=== PATIENT | female | born 1945 | race Caucasian/White ===

== ENCOUNTER → 2017-04-23 | Outpatient (CLI) | payer MEDICARE, BC ==
[2016-04-20 08:21] VITALS: BP 129/75
[~2017-04-23] MED LIST: ACLI400A2 IH; ALBU8.5H8 INH; ASPI81TA50 PO; ATOR20TA58 PO; CALC-98 PO; CARV6.252 PO; FURO20TA3 PO; LEVO500T59 PO; MELO15TA6 PO; METF500T4 PO; MULT1TAB6 PO; NAPR500T3 PO; OLME1TAB21 PO; OMEP20CA9 PO; TRAM50TA PO
[2017-04-23 09:19] LABS: ALBUMIN 3.7 g/dL (3.4-5.0); ALBUMIN/GLOBULIN RATIO 0.8 (1.0-1.7); CALCIUM 9.8 mg/dL (8.5-10.1); GFR 54.2; POTASSIUM 3.4 mmol/L (3.5-5.1); TOTAL BILIRUBIN 0.4 mg/dL (0.2-1.0); TOTAL PROTEIN 8.1 g/dL (6.4-8.2)
== END | disposition home or self-care (01) ==
LOC: LAB 08:30
PROVIDERS: ATTEND Nurse Practitioner
DX: I50.22 Chronic systolic (congestive) heart failure (principal)
CPT/HCPCS: 36415; 80053; 83735

== ENCOUNTER → 2017-05-08 | Outpatient (CLI) | payer MEDICARE, BC ==
[2016-04-20 08:21] VITALS: BP 129/75
[2017-05-08 09:47] LABS: CALCIUM 9.7 mg/dL (8.5-10.1); CREATININE 1.3 mg/dL (0.6-1.0); POTASSIUM 4.3 mmol/L (3.5-5.1)
== END | disposition home or self-care (01) ==
LOC: LAB 08:21
PROVIDERS: ATTEND Internal Medicine Cardiovascular Disease
DX: I50.22 Chronic systolic (congestive) heart failure (principal)
CPT/HCPCS: 36415; 80048

== ENCOUNTER → 2017-06-21 | Outpatient (CLI) | payer MEDICARE, BC ==
[2016-04-20 08:21] VITALS: BP 129/75
--- NOTE | 2017-06-21 09:05 | RAD ---
INDICATION: RIGHT HIP PAIN AND NUMBNESS X 2 WEEKS COMPARISON: 01/06/2016 IMPRESSION: 2 views of hip and right pelvis obtained without acute fracture or dislocation. Degenerative changes of the partially visualized lower lumbar spine.
--- NOTE | 2017-06-21 10:05 | RAD ---
INDICATION: RIGHT HIP PAIN AND NUMBNESS X 2 WEEKS, LUMBAR PAIN COMPARISON: None. IMPRESSION: Lumbar spine: 3 views obtained without definite acute fracture or dislocation. Degenerative changes are identified with osteophyte formation as well as facet hypertrophy. Severe calcific atherosclerosis. Stool is seen throughout the partially visualized colon.
== END | disposition home or self-care (01) ==
LOC: DXRADRC 08:42
PROVIDERS: ATTEND Nurse Practitioner Family
DX: M25.751 Osteophyte, right hip (principal); I70.8 Atherosclerosis of other arteries; M54.5 Low back pain; R20.0 Anesthesia of skin
CPT/HCPCS: 72100; 73501

== ENCOUNTER → 2017-06-21 | Outpatient (CLI) | payer MEDICARE, BC ==
[2016-04-20 08:21] VITALS: BP 129/75
[2017-06-21 10:45] LABS: BASO # 0.1 x10^3/uL (0.0-0.2); BASO % 1 % (0-3); EOS # 0.4 x10^3/uL (0.0-0.7); EOS % 4 % (0-3); HEMATOCRIT 40.5 % (36.0-47.0); HEMOGLOBIN 13.9 g/dL (12.0-15.5); LYMPH # 2.3 x10^3/uL (1.0-4.8); LYMPH % 23 % (24-48); MEAN CORPUSCULAR HEMOGLOBIN 32 pg (25-35); MEAN CORPUSCULAR HGB CONC 34 g/dL (31-37); MEAN CORPUSCULAR VOLUME 93 fL (79-100); MONO # 1.1 x10^3/uL (0.0-1.1); MONO % 11 % (0-9); NEUT # 6.2 x10^3uL (1.8-7.7); NEUT % 62 % (31-73); PLATELET COUNT 159 x10^3/uL (140-400); RED BLOOD COUNT 4.34 x10^6/uL (3.50-5.40); RED CELL DISTRIBUTION WIDTH 13.7 % (11.5-14.5)
[2017-06-21 10:53] LABS: ALBUMIN 3.8 g/dL (3.4-5.0); CALCIUM 9.7 mg/dL (8.5-10.1); CREATININE 1.2 mg/dL (0.6-1.0); GFR 43.9; POTASSIUM 4.6 mmol/L (3.5-5.1); TOTAL BILIRUBIN 0.6 mg/dL (0.2-1.0); TOTAL PROTEIN 7.8 g/dL (6.4-8.2)
[2017-06-21 13:45] LABS: FREE T4 1.03 ng/dL (0.76-1.46); THYROID STIM HORMONE (TSH) 1.202 uIU/mL (0.358-3.740)
[2017-06-22 04:09] LABS: HEMOGLOBIN A1C 5.5 % (4.8-5.6)
== END | disposition home or self-care (01) ==
LOC: LAB 10:03
PROVIDERS: ATTEND Nurse Practitioner Family
DX: I10 Essential (primary) hypertension (principal); E11.9 Type 2 diabetes mellitus without complications; E83.42 Hypomagnesemia; M54.5 Low back pain
CPT/HCPCS: 36415; 80053; 83036; 83735; 84439; 84443; 85027

== ENCOUNTER → 2017-06-25 | Outpatient (CLI) | payer MEDICARE, BC ==
[2016-04-20 08:21] VITALS: BP 129/75
[2017-06-25 08:50] LABS: CALCIUM 9.9 mg/dL (8.5-10.1); CREATININE 1.3 mg/dL (0.6-1.0); POTASSIUM 4.5 mmol/L (3.5-5.1)
== END | disposition home or self-care (01) ==
LOC: LAB 08:20
PROVIDERS: ATTEND Internal Medicine Cardiovascular Disease
DX: I50.23 Acute on chronic systolic (congestive) heart failure (principal)
CPT/HCPCS: 36415; 80048

== ENCOUNTER → 2017-08-27 | Outpatient (CLI) | payer MEDICARE, BC ==
[2016-04-20 08:21] VITALS: BP 129/75
--- NOTE | 2017-08-27 12:43 | CARD ---
APPROVED REPORT EXAM: Two-dimensional and M-mode echocardiogram with Doppler and color Doppler. Other Information Quality : Average Rhythm : Pacemaker INDICATION Cardiomyopathy 2D DIMENSIONS RVDd2.8 (2.9-3.5cm)Left Atrium(2D)2.5 (1.6-4.0cm) IVSd1.0 (0.7-1.1cm)Aortic Root(2D)3.1 (2.0-3.7cm) LVDd5.7 (3.9-5.9cm)LVOT Diameter2.0 (1.8-2.4cm) PWd1.0 (0.7-1.1cm)LVDs4.7 (2.5-4.0cm) FS (%) 18.1 %SV59.2 ml LVEF(%)37.0 (>50%) Aortic Valve AoV Peak Jose.182.8cm/sAoV VTI32.1cm AO Peak GR.13.4mmHgLVOT Peak Jose.68.1cm/s LVOT VTI 12.21cmAO Mean GR.8mmHg K[place]ON (VMAX)1.44fu5IYZ (VTI)1.24cm2 Mitral Valve MV E Oevscmie60.5cm/sMV E Peak Gr.3mmHg MV DECEL CZCR796mfRP A Tctnvpsw08.5cm/s MV E Mean Gr.1mmHgMV ACF20hp E/A Ratio0.9MV A Torndbfz72fz MVA (PHT)7.77cm2 Tricuspid Valve TR P. Msnooaup647px/sRAP ZQHXNHDP2icNb TR Peak Gr.36wuBgANZZ33uyTq LEFT VENTRICLE The left ventricle is normal size. There is normal left ventricular wall thickness. Left ventricle sy stolic function is moderately impaired. Severe hypokinesis of base to mid inferior and posterior wall s. The Ejection Fraction is 35-40%. Apical motion consistent with pacemaker activation. Tissue Dopple r imaging reveals moderate left ventricular diastolic dysfunction. There is no ventricular septal def ect visualized. RIGHT VENTRICLE The right ventricle is normal size. The right ventricular systolic function is normal. There is a pac emaker/ICD lead in the right ventricle and atrium. ATRIA The left atrium size is normal. The right atrium size is normal. The interatrial septum is intact wit h no evidence for an atrial septal defect or patent foramen ovale as noted on 2-D or Doppler imaging. AORTIC VALVE The aortic valve is mildly sclerotic. The aortic valve is trileaflet. Doppler and Color Flow revealed trace aortic regurgitation. There is no significant aortic valvular stenosis. MITRAL VALVE Mitral annular calcification is mild. There is no mitral valve stenosis. Doppler and Color Flow revea led mild mitral regurgitation. TRICUSPID VALVE The tricuspid valve is normal in structure and function. Doppler and Color Flow revealed trace tricus pid regurgitation. The PA pressure was estimated at 29 mmHg. There is no tricuspid valve stenosis. PULMONIC VALVE The pulmonic valve is not well visualized. Doppler and Color Flow revealed no pulmonic valvular regur gitation. There is no pulmonic valvular stenosis. GREAT VESSELS The aortic root is normal in size. Pulmonary veins not recorded. The IVC is normal in size and collap ses >50% with inspiration. PERICARDIAL EFFUSION There is no evidence of significant pericardial effusion. Critical Notification Critical Value: No <Conclusion> Left ventricle systolic function is moderately impaired. Severe hypokinesis of base to mid inferior and posterior reynoso. The Ejection Fraction is 35-40%. There is a pacemaker/ICD lead in the right ventricle and atrium. Mld mitral regurgitation. Trace tricuspid regurgitation. The PA pressure was estimated at 29 mmHg. There is no evidence of significant pericardial effusion.
== END | disposition home or self-care (01) ==
LOC: ECHO 10:40
PROVIDERS: ATTEND Internal Medicine Cardiovascular Disease
DX: I34.0 Nonrheumatic mitral (valve) insufficiency (principal); I42.9 Cardiomyopathy, unspecified; Z95.0 Presence of cardiac pacemaker
CPT/HCPCS: 93306

== ENCOUNTER → 2017-11-13 | Outpatient (CLI) | payer MEDICARE, BC ==
[2016-04-20 08:21] VITALS: BP 129/75
[~2017-11-13] MED LIST changes: -NAPR500T3 PO; +NAPR500T4 PO
--- NOTE | 2017-11-13 09:43 | RAD ---
Chest, 2 views, 11/13/2017: History: Chest congestion Comparison is made to a study from 11/01/2016. A left-sided transvenous pacemaker remains in place with 2 leads extending into the heart. The heart size is normal. There is calcific plaquing of the aorta. The pulmonary vascularity is within normal limits. No pulmonary infiltrate is seen. The previously seen small right pleural effusion has resolved. No significant pleural fluid is currently evident. IMPRESSION: No acute cardiopulmonary abnormality is detected.
== END | disposition home or self-care (01) ==
LOC: PMG 07:31
PROVIDERS: ATTEND Physician Assistant Medical
DX: I70.0 Atherosclerosis of aorta (principal); Z95.0 Presence of cardiac pacemaker; Z87.891 Personal history of nicotine dependence
CPT/HCPCS: 71020

== ENCOUNTER → 2018-07-11 | Outpatient (CLI) | payer MEDICARE, BC ==
[2016-04-20 08:21] VITALS: BP 129/75
[~2018-07-11] MED LIST changes: -METF500T4 PO; +METF500T5 PO; +NAPR-514 PO; -NAPR500T4 PO
[2018-07-11 11:55] LABS: CALCIUM 9.5 mg/dL (8.5-10.1); CREATININE 1.4 mg/dL (0.6-1.0); GFR 36.7; POTASSIUM 4.6 mmol/L (3.5-5.1)
== END | disposition home or self-care (01) ==
LOC: LAB 10:23
PROVIDERS: ATTEND Internal Medicine Cardiovascular Disease
DX: I13.0 Hypertensive heart and chronic kidney disease with heart failure and stage 1 through stage 4 chronic kidney disease, or unspecified chronic kidney disease (principal); E11.22 Type 2 diabetes mellitus with diabetic chronic kidney disease; I50.22 Chronic systolic (congestive) heart failure; N18.9 Chronic kidney disease, unspecified; K21.9 Gastro-esophageal reflux disease without esophagitis; E87.6 Hypokalemia; Z87.891 Personal history of nicotine dependence; Z90.722 Acquired absence of ovaries, bilateral; Z90.49 Acquired absence of other specified parts of digestive tract; Z90.710 Acquired absence of both cervix and uterus; Z85.43 Personal history of malignant neoplasm of ovary; Z85.42 Personal history of malignant neoplasm of other parts of uterus; Z82.5 Family history of asthma and other chronic lower respiratory diseases; Z80.6 Family history of leukemia; Z82.49 Family history of ischemic heart disease and other diseases of the circulatory system; Z88.0 Allergy status to penicillin; Z88.1 Allergy status to other antibiotic agents; Z88.2 Allergy status to sulfonamides; Z88.8 Allergy status to other drugs, medicaments and biological substances
CPT/HCPCS: 36415; 80048

== ENCOUNTER → 2018-07-21 | Outpatient (CLI) | payer MEDICARE, BC ==
[2016-04-20 08:21] VITALS: BP 129/75
[2018-07-21 12:02] LABS: CALCIUM 10.1 mg/dL (8.5-10.1); CREATININE 1.5 mg/dL (0.6-1.0); GFR 33.9
== END | disposition home or self-care (01) ==
LOC: LAB 11:24
PROVIDERS: ATTEND Nurse Practitioner
DX: I13.0 Hypertensive heart and chronic kidney disease with heart failure and stage 1 through stage 4 chronic kidney disease, or unspecified chronic kidney disease (principal); E11.22 Type 2 diabetes mellitus with diabetic chronic kidney disease; I50.22 Chronic systolic (congestive) heart failure; N18.9 Chronic kidney disease, unspecified; E78.5 Hyperlipidemia, unspecified; Z88.2 Allergy status to sulfonamides; Z88.0 Allergy status to penicillin; Z88.1 Allergy status to other antibiotic agents; Z88.8 Allergy status to other drugs, medicaments and biological substances; Z87.891 Personal history of nicotine dependence; Z85.43 Personal history of malignant neoplasm of ovary; Z85.42 Personal history of malignant neoplasm of other parts of uterus; Z90.49 Acquired absence of other specified parts of digestive tract; Z90.710 Acquired absence of both cervix and uterus; Z80.6 Family history of leukemia; Z82.5 Family history of asthma and other chronic lower respiratory diseases
CPT/HCPCS: 36415; 80048

== ENCOUNTER → 2018-07-22 | Outpatient (CLI) | payer MEDICARE, BC ==
[2016-04-20 08:21] VITALS: BP 129/75
--- NOTE | 2018-07-22 13:00 | RAD ---
CT lumbar spine exam History:Dorsalgia, spinal stenosis of the lumbar spine, neuralgia, bilateral extremity radiculopathy Technique: CT imaging was performed of the lumbar spine after injection for lumbar myelogram. Multiplanar reconstruction images are submitted. Exposure: One or more of the following individualized dose reduction techniques were utilized for this examination: 1. Automated exposure control 2. Adjustment of the mA and/or kV according to patient size 3. Use of iterative reconstruction technique. Contrast: None Comparison: March 28, 2016 Findings: Lumbar vertebral body stature and AP alignment are maintained. There is pirq-mw-gapdjadk degenerative disc disease at L4-5, development of vacuum disc disease at this level in the interval. There is atherosclerotic calcification of the abdominal aorta and near the origins of the renal arteries greater on the left. T12-L1: Spinal canal and neural foramina are adequate. L1-L2: There is mild facet degenerative change. Neural foramina and spinal canal are adequate. L2-L3: There is mild facet degenerative change. Spinal canal and neural foramina are adequate. L3-L4: There is mild facet hypertrophic change. Spinal canal and neural foramina are adequate. L4-L5: There is minimal posterior bulge, no significant spinal stenosis identified on this nonmyelographic exam. There is lntx-ti-mkdftsxq facet degenerative change. Disc osteophyte complex again contributes to moderate narrowing of the inferior left neural foramen with contact undersurface exiting left L4 nerve root, right neural foramen adequate. L5-S1: Spinal canal is adequate. There is minimal posterior bulge/protrusion. There is mild bilateral facet hypertrophic change. Neural foramina are adequate. Impression: 1. There is bjsg-hs-zushsgec degenerative disc disease at L4-5. 2. There is multilevel lumbar facet degenerative change. 3. Disc osteophyte complex results in moderate narrowing of the inferior left L4-L5 neural foramen with contact exiting left L4 nerve root. Electronically signed by: Lee Cotton MD (07/22/2018 12:57 PM) [id number]
== END | disposition home or self-care (01) ==
LOC: CT 09:09
PROVIDERS: ATTEND Nurse Practitioner Family
DX: M48.061 Spinal stenosis, lumbar region without neurogenic claudication (principal); M51.36 Other intervertebral disc degeneration, lumbar region; M25.78 Osteophyte, vertebrae; I70.0 Atherosclerosis of aorta; I13.0 Hypertensive heart and chronic kidney disease with heart failure and stage 1 through stage 4 chronic kidney disease, or unspecified chronic kidney disease; E11.22 Type 2 diabetes mellitus with diabetic chronic kidney disease; I50.22 Chronic systolic (congestive) heart failure; N18.9 Chronic kidney disease, unspecified; K21.9 Gastro-esophageal reflux disease without esophagitis; I25.10 Atherosclerotic heart disease of native coronary artery without angina pectoris; E87.6 Hypokalemia; E78.5 Hyperlipidemia, unspecified; Z90.710 Acquired absence of both cervix and uterus; Z90.49 Acquired absence of other specified parts of digestive tract; Z90.722 Acquired absence of ovaries, bilateral; Z87.891 Personal history of nicotine dependence; Z85.43 Personal history of malignant neoplasm of ovary; Z85.42 Personal history of malignant neoplasm of other parts of uterus; Z88.2 Allergy status to sulfonamides; Z88.0 Allergy status to penicillin; Z88.1 Allergy status to other antibiotic agents; Z88.8 Allergy status to other drugs, medicaments and biological substances; Z82.49 Family history of ischemic heart disease and other diseases of the circulatory system
CPT/HCPCS: 72132

== ENCOUNTER → 2018-08-21 | Outpatient (CLI) | payer MEDICARE, BC ==
[2016-04-20 08:21] VITALS: BP 129/75
[~2018-08-21] MED LIST changes: +METF500T16 PO; -METF500T5 PO
--- NOTE | 2018-08-21 12:35 | CARD ---
MR#: [id number] Date of Study: 08/21/2018 Ordering Physician: RINKU MELENDEZ, Referring Physician: RINKU MELENDEZ, Tech: Yolanda Sweeney APPROVED REPORT EXAM: Two-dimensional and M-mode echocardiogram with Doppler and color Doppler. Other Information Quality : AverageFairHR: 74bpm INDICATION Cardiomyopathy RISK FACTORS Hypertension Hyperlipidemia Diabetes 2D DIMENSIONS RVDd2.0 (2.9-3.5cm)Left Atrium(2D)3.2 (1.6-4.0cm) IVSd1.2 (0.7-1.1cm)Aortic Root(2D)3.3 (2.0-3.7cm) LVDd4.3 (3.9-5.9cm)LVOT Diameter2.3 (1.8-2.4cm) PWd1.5 (0.7-1.1cm)LVDs2.9 (2.5-4.0cm) FS (%) 33.0 %SV52.4 ml Aortic Valve AoV Peak Jose.210.7cm/sAoV VTI42.0cm AO Peak GR.17.8mmHgLVOT Peak Jose.96.1cm/s LVOT VTI 20.23cmAO Mean GR.9mmHg KENTON (VMAX)1.79cl3KFS (VTI)1.95cm2 Mitral Valve MV E Zjyysope46.1cm/sMV DECEL SIRR45ws MV A Fivsfwce81.8cm/sE/A Ratio0.4 Pulmonary Valve PV Peak Xelivlaq42.4cm/sPV Peak Grad.3mmHg LEFT VENTRICLE The left ventricle is normal size. There is borderline to mild concentric left ventricular hypertroph y. The left ventricular systolic function is mildly to moderately impaired. The ejection fraction is 40%. Transmitral Doppler flow pattern is Grade I-abnormal relaxation pattern. RIGHT VENTRICLE The right ventricle is normal size. There is normal right ventricular wall thickness. The right ventr icular systolic function is normal. Pacer wire noted right atrium and right ventricle. ATRIA The left atrium size is normal. The right atrium size is normal. The interatrial septum is intact wit h no evidence for an atrial septal defect or patent foramen ovale as noted on 2-D or Doppler imaging. AORTIC VALVE The aortic valve is thickened but opens well. Doppler and Color Flow revealed trace aortic regurgitat ion. There is no significant aortic valvular stenosis. MITRAL VALVE The mitral valve is normal in structure and function. There is no mitral valve stenosis. Doppler and Color-flow revealed trace mitral regurgitation. TRICUSPID VALVE The tricuspid valve is normal in structure and function. Doppler and Color Flow revealed trace tricus pid regurgitation. There is no tricuspid valve stenosis. PULMONIC VALVE The pulmonic valve is not well visualized. Doppler and Color Flow revealed no pulmonic valvular regur gitation. GREAT VESSELS The aortic root is normal in size. The IVC is normal in size and collapses >50% with inspiration. PERICARDIAL EFFUSION There is no evidence of significant pericardial effusion. Critical Notification Critical Value: No <Conclusion> The left ventricular systolic function is mildly to moderately impaired. The ejection fraction is 40%. Transmitral Doppler flow pattern is Grade I-abnormal relaxation pattern. Pacer wire noted right atrium and right ventricle. Trace aortic regurgitation. Trace mitral regurgitation. Trace tricuspid regurgitation. There is no evidence of significant pericardial effusion. Signed by : Rinku Melendez, Electronically Approved : 08/21/2018 12:34:06
== END | disposition home or self-care (01) ==
LOC: ECHO 09:26
PROVIDERS: ATTEND Internal Medicine Cardiovascular Disease
DX: I13.0 Hypertensive heart and chronic kidney disease with heart failure and stage 1 through stage 4 chronic kidney disease, or unspecified chronic kidney disease (principal); E11.22 Type 2 diabetes mellitus with diabetic chronic kidney disease; I50.22 Chronic systolic (congestive) heart failure; N18.9 Chronic kidney disease, unspecified; K21.9 Gastro-esophageal reflux disease without esophagitis; Z86.2 Personal history of diseases of the blood and blood-forming organs and certain disorders involving the immune mechanism; Z87.891 Personal history of nicotine dependence; Z85.43 Personal history of malignant neoplasm of ovary; Z85.42 Personal history of malignant neoplasm of other parts of uterus; Z90.722 Acquired absence of ovaries, bilateral; Z90.49 Acquired absence of other specified parts of digestive tract; Z90.710 Acquired absence of both cervix and uterus; Z88.0 Allergy status to penicillin; Z88.2 Allergy status to sulfonamides; Z88.1 Allergy status to other antibiotic agents; Z88.8 Allergy status to other drugs, medicaments and biological substances; Z80.6 Family history of leukemia; Z82.5 Family history of asthma and other chronic lower respiratory diseases
CPT/HCPCS: 93306

== ENCOUNTER → 2019-07-23 | Outpatient (CLI) | payer MEDICARE, BC ==
[2016-04-20 08:21] VITALS: BP 129/75
[~2019-07-23] MED LIST changes: -ACLI400A2 IH; +ACLI400A3 IH; +ALBU2.5V8 INH; -ALBU8.5H8 INH; -CARV6.252 PO; +CARV6.2541 PO; +OMEP20CA10 PO; -OMEP20CA9 PO
--- NOTE | 2019-07-23 08:49 | RAD ---
EXAM: Right knee, 2 views. HISTORY: Pain. COMPARISON: None. FINDINGS: 2 views of the right knee are obtained. There is no fracture, dislocation or subluxation. There is no significant joint effusion. IMPRESSION: No acute osseous finding. Electronically signed by: Sonia Ruano MD (07/23/2019 8:46 AM) [id number]
--- NOTE | 2019-07-23 08:49 | RAD ---
EXAM: Right hip, 2 views. HISTORY: Pain. COMPARISON: None. FINDINGS: 2 views of the right hip are obtained. There is no fracture, dislocation or subluxation. There is a suspected incidental bone island within the right greater trochanter. IMPRESSION: No acute osseous finding. Electronically signed by: Sonia Ruano MD (07/23/2019 8:46 AM) [id number]
== END | disposition home or self-care (01) ==
LOC: PMG 07:45
PROVIDERS: ATTEND Physician Assistant
DX: M25.561 Pain in right knee (principal); M25.551 Pain in right hip
CPT/HCPCS: 73502; 73560

== ENCOUNTER → 2019-09-01 | Outpatient (CLI) | payer MEDICARE, BC ==
[2016-04-20 08:21] VITALS: BP 129/75
--- NOTE | 2019-09-01 09:52 | CARD ---
MR#: [id number] Date of Study: 09/01/2019 Ordering Physician: RINKU MELENDEZ, Referring Physician: RINKU MELENDEZ Tech: Lauryn Thomas RDCS APPROVED REPORT EXAM: Two-dimensional and M-mode echocardiogram with Doppler and color Doppler. Other Information Quality : AverageHR: 68bpm Rhythm : NSR INDICATION Congestive Heart Failure 2D DIMENSIONS RVDd2.9 (2.9-3.5cm)Left Atrium(2D)3.9 (1.6-4.0cm) IVSd1.3 (0.7-1.1cm)Aortic Root(2D)3.1 (2.0-3.7cm) LVDd4.9 (3.9-5.9cm)LVOT Diameter2.0 (1.8-2.4cm) PWd1.5 (0.7-1.1cm)LVDs4.2 (2.5-4.0cm) FS (%) 14.4 %SV34.0 ml LVEF(%)30.6 (>50%) M-Mode DIMENSIONS Left Atrium(MM)3.83 (2.5-4.0cm)Aortic Root3.32 (2.2-3.7cm) Aortic Valve AoV Peak Jose.181.0cm/sAoV VTI32.2cm AO Peak GR.13.1mmHgLVOT Peak Jose.68.4cm/s LVOT VTI 13.27cmAO Mean GR.9mmHg K[place]ON (VMAX)1.05qi6IKC (VTI)1.30cm2 Mitral Valve MV E Yhuuiiwf24.5cm/sMV DECEL KDYP718rs MV A Zdswssfo23.9cm/sE/A Ratio0.4 Pulmonary Valve PV Peak Zzapcrpx21.6cm/sPV Peak Grad.3mmHg Tricuspid Valve TR P. Pmnenmzr785rg/sRAP NNQLPIHF8nyGu TR Peak Gr.82fzWtWTVD85yjDn LEFT VENTRICLE The left ventricle is normal size. There is mild concentric left ventricular hypertrophy. The left ve ntricular systolic function is moderately impaired. The Ejection Fraction is 30%. There is global hyp okinesis of the left ventricle. Transmitral Doppler flow pattern is Grade I-abnormal relaxation patte rn. RIGHT VENTRICLE The right ventricle is normal size. There is normal right ventricular wall thickness. The right ventr icular systolic function is normal. Pacer lead noted in RV/RA. ATRIA The left atrium size is normal. The right atrium size is normal. The interatrial septum is intact wit h no evidence for an atrial septal defect or patent foramen ovale as noted on 2-D or Doppler imaging. AORTIC VALVE The aortic valve is normal in structure and function. The aortic valve is probably trileaflet. Dopple r and Color Flow revealed trace aortic regurgitation. There is borderline aortic valvular stenosis. MITRAL VALVE The mitral valve is thickened but opens well. There is no evidence of mitral valve prolapse. There is no mitral valve stenosis. Doppler and Color-flow revealed trace mitral regurgitation. TRICUSPID VALVE The tricuspid valve is normal in structure and function. Doppler and Color Flow revealed trace tricus pid regurgitation. The PA pressure was estimated at 25 mmHg. There is no tricuspid valve prolapse or vegetation. There is no tricuspid valve stenosis. PULMONIC VALVE The pulmonic valve is not well visualized. GREAT VESSELS The aortic root is normal in size. The ascending aorta is normal in size. The IVC is normal in size a nd collapses >50% with inspiration. PERICARDIAL EFFUSION There is no evidence of significant pericardial effusion. Critical Notification Critical Value: No <Conclusion> The left ventricular systolic function is moderately impaired. The Ejection Fraction is 30%. Pacer lead noted in RV/RA. Trace mitral regurgitation. Trace tricuspid regurgitation. The PA pressure was estimated at 25 mmHg. There is no evidence of significant pericardial effusion. Signed by : Rinku Melendez, Electronically Approved : 09/01/2019 09:51:30
== END | disposition home or self-care (01) ==
LOC: ECHO 08:47
PROVIDERS: ATTEND Internal Medicine Cardiovascular Disease
DX: I50.22 Chronic systolic (congestive) heart failure (principal)
CPT/HCPCS: 93306

== ENCOUNTER → 2019-10-27 | Outpatient (CLI) | payer MEDICARE, BC ==
[2016-04-20 08:21] VITALS: BP 129/75
--- NOTE | 2019-10-27 13:47 | RAD ---
4 views lumbar spine compared to CT of the lumbar spine dated July 22, 2018 for low back pain, left leg shorter than the right, feels twisted. FINDINGS: There is no fracture or acute osseous abnormality identified. Degenerative disc space narrowing and vacuum phenomenon is seen at L4-5, and there is some facet arthrosis at L4-5 and L5-S1. Extensive aortic atherosclerosis is present. Cholecystostomy clips are seen. IMPRESSION: 1. Degenerative disc disease and facet arthrosis at L4-5 and L5-S1. 2. No acute osseous or alignment abnormality of the lumbar spine. 3. Extensive aortic atherosclerosis. Electronically signed by: Roque Jacobs MD (10/27/2019 1:44 PM) [id number]
== END | disposition home or self-care (01) ==
LOC: DXRAD 07:50
PROVIDERS: ATTEND Physician Assistant Medical
DX: M51.16 Intervertebral disc disorders with radiculopathy, lumbar region (principal); M53.3 Sacrococcygeal disorders, not elsewhere classified; M48.061 Spinal stenosis, lumbar region without neurogenic claudication; M47.26 Other spondylosis with radiculopathy, lumbar region; M47.818 Spondylosis without myelopathy or radiculopathy, sacral and sacrococcygeal region; I70.0 Atherosclerosis of aorta; Z90.49 Acquired absence of other specified parts of digestive tract
CPT/HCPCS: 72110

== ENCOUNTER → 2019-11-28 | Outpatient (CLI) | payer MEDICARE, BC ==
[2016-04-20 08:21] VITALS: BP 129/75
[~2019-11-28] MED LIST changes: +OMEP-229 PO; -OMEP20CA10 PO
--- NOTE | 2019-11-28 12:46 | RAD ---
Chest, PA and Lateral: Technique: PA and lateral views of the chest were obtained. History: Cough. Comparison: 11/13/2017. Findings: Mild cardiomegaly.. Left-sided cardiac pacer AICD is identified.. The pleural margins are clear. Mild degenerative changes thoracic spine. Impression: No acute chest process is seen. Electronically signed by: Dontae Collins MD (11/28/2019 12:43 PM) [facility]
== END | disposition home or self-care (01) ==
LOC: PMG 11:01
PROVIDERS: ATTEND Physician Assistant
DX: I51.7 Cardiomegaly (principal); M47.814 Spondylosis without myelopathy or radiculopathy, thoracic region
CPT/HCPCS: 71046

== ENCOUNTER → 2020-07-26 | Outpatient (CLI) | payer MEDICARE, BC ==
[2016-04-20 08:21] VITALS: BP 129/75
[~2020-07-26] MED LIST changes: -OMEP-229 PO; +OMEP20CA16 PO
--- NOTE | 2020-07-26 14:47 | RAD ---
CT LUMBAR SPINE WO CONTRAST Indication: Right lumbar radiculopathy Technique: Noncontrast CT imaging was performed of the lumbar spine, multiplanar reconstruction images submitted. One or more of the following individualized dose reduction techniques were utilized for this examination: 1. Automated exposure control 2. Adjustment of the mA and/or kV according to patient size 3. Use of iterative reconstruction technique. Comparison: July 22, 2018 exam Findings: Lumbar vertebral body stature is maintained. There has been progression of advanced L4-5 degenerative disc disease with vacuum phenomenon, mild L5-S1 degenerative disc disease and vacuum phenomenon also somewhat greater. There is now negligible anterior spondylolisthesis at L4-5. There is mild dextroscoliosis centered at L4-5, also very minimal right lateral subluxation L4 relative to L5. There is scattered plaque of the abdominal aorta and branches. There is sigmoid diverticulosis. There is a small hyperdense lesion of the visualized posterior left kidney near the midpole about 0.6 cm otherwise difficult to further accurately characterize T12-L1: There is mild facet degenerative change. Spinal canal and neural foramina are adequate. L1-L2: There is mild bilateral facet degenerative change. Neural foramina and spinal canal are overall adequate. L2-3: There is nfkb-ym-ebbtdeeu facet degenerative change. Neural foramina and spinal canal are overall adequate. L3-L4: There is jdyb-sn-qzcnxpth facet degenerative change. Spinal canal and neural foramina are overall adequate. L4-5: There is moderate facet degenerative change. There is disc osteophyte complex and likely minimal bulge. There is moderate to severe narrowing of the left neural foramen in part from disc osteophyte complex contacting the undersurface exiting left L4 nerve root in the neural foramen. There is likely at least mild narrowing of the far left lateral recess. L5-S1: There is minimal protrusion. Spinal canal is not significantly narrowed. There is xypz-bo-vqwevvyl facet degenerative change. Left neural foramen is adequate. There is likely mgdw-aj-anhftgsz narrowing greater distally of the right neural foramen in part from disc osteophyte complex with likely degree of contact exiting right L5 nerve root. IMPRESSION: 1. Comparing with 2018 exam, there has been progression of advanced L4-5 degenerative disc disease, minimally at L5-S1. There is mild spondylosis at these levels. No significant lumbar spinal stenosis is identified on this nonmyelographic exam, although likely at least mild narrowing of the far left lateral recess at L4-5. There is neural foramina compromise as described greatest on the left at L4-5 and to lesser degree on the right at L5-S1. 2. There is a small hyperdense lesion of the mid left kidney otherwise difficult to further accurately characterize, may be a complex or hemorrhagic cyst although difficult to exclude small hyperdense solid lesion on this exam. Electronically signed by: Lee Cotton MD (07/26/2020 2:45 PM) [facility]
== END | disposition home or self-care (01) ==
LOC: CT 13:02
PROVIDERS: ATTEND Physician Assistant Medical
DX: S33.140A Subluxation of L4/L5 lumbar vertebra, initial encounter (principal); M47.27 Other spondylosis with radiculopathy, lumbosacral region; M25.78 Osteophyte, vertebrae; M48.07 Spinal stenosis, lumbosacral region; K57.30 Diverticulosis of large intestine without perforation or abscess without bleeding; X58.XXXA Exposure to other specified factors, initial encounter; Y93.89 Activity, other specified; Y92.89 Other specified places as the place of occurrence of the external cause; Y99.8 Other external cause status
CPT/HCPCS: 72131

== ENCOUNTER → 2020-09-01 | Outpatient (CLI) | payer MEDICARE, BC ==
[2016-04-20 08:21] VITALS: BP 129/75
--- NOTE | 2020-09-01 13:36 | RAD ---
EXAM: DUAL ENERGY X-RAY ABSORPTIOMETRY (DEXA). HISTORY: Postmenopausal screening. FINDINGS: The lowest measured T-score is -2.2 in the left femoral neck, based on a bone mineral density of 0.670 g/cm^2. Refer to the worksheets for full detail. No comparison examinations are available. IMPRESSION: Low bone mass. Bone mineral density yields a T-score between -1.0 and -2.5. Fracture risk is increased. FRAX was not calculated. METHODOLOGY: Dual energy x-ray absorptiometry was performed to measure bone mineral density. The following analysis is based on the 2019 Official Positions of the International Society for Clinical Densitometry: Measurements of the hips and the average of L1-L4 are preferred. When the spine and/or hip cannot be feasibly measured or interpreted, or in the setting of hyperparathyroidism, distal radial bone mineral density may be measured. The lumbar spine T-score is based on the average bone mineral density of L1-L4. In the setting of artifact or anatomic abnormality, some lumbar levels may be excluded, and the remaining levels used for calculation. A single lumbar level is not used for diagnosis, and if only a single level is available for assessment, another anatomic site will be used to assign a diagnosis. The hip T-score is based on the bone mineral density measurement of the femoral neck or total proximal femur of either side, whichever is lowest. Bilateral mean values are not used for diagnosis. The forearm T-score is derived from 33% of the distal radius of the nondominant forearm. For postmenopausal and perimenopausal women, and men age 50 or older, of all ethnic groups, T-scores are calculated through comparison of the current measurement with the NHANES III database standard for females aged 20-29 years. The lowest T-score of the evaluated anatomic sites is used to assign a diagnosis based on the World Health Organization densitometric classification. In premenopausal females and males younger than age 50, a Z-score is calculated based on population specific reference data for patient sex and self-reported ethnicity. Electronically signed by: Jacek García MD (09/01/2020 1:33 PM) [id number]
--- NOTE | 2020-09-01 18:34 | RAD ---
BILATERAL SCREENING MAMMOGRAM, 3-D History: Routine screening. Comparison: 01/08/2011 12/22/2012. Technique: MLO and CC digital tomosynthesis (3D) images obtained. Radiologist reviewed these images on dedicated workstation. Findings: Breast Tissue Density C : The breasts are heterogeneously dense, which may obscure small masses. There are no dominant masses, suspicious microcalcifications, or architectural distortion. Small asymmetry in the far posterior aspect of the right upper breast is present. This is stable upon correlation with 01/08/2011 and does not appear to have been included on 12/22/2012 considering its posterior location. IMPRESSION: No mammographic evidence of malignancy. Recommend routine screening. BI-RADS category 1: Negative. The images were reviewed with computer-aided detection. Patient information is entered into reminder system with a target due date for the next screening mammogram. Mammography is the most sensitive method for finding small breast cancers, but it does not detect them all and is not a substitute for careful clinical examination. A negative mammogram does not negate a clinically suspicious finding and should not result in delay in biopsying a clinically suspicious abnormality. "Our facility is accredited by the [employer] Mammography Program." Electronically signed by: Be Pittman MD (09/01/2020 6:31 PM) [id number]
== END | disposition home or self-care (01) ==
LOC: DXRAD 11:28
PROVIDERS: ATTEND Physician Assistant Medical
DX: Z12.31 Encounter for screening mammogram for malignant neoplasm of breast (principal); Z78.0 Asymptomatic menopausal state
CPT/HCPCS: 77063; 77067; 77080

== ENCOUNTER → 2021-01-03 | Outpatient (CLI) | payer MEDICARE, BC ==
[2016-04-20 08:21] VITALS: BP 129/75
[~2021-01-03] MED LIST changes: +REGADENOSON 0.4 MG/5 ML DISP.SYRIN. IV ONE; +SACU1TAB4 PO; +SPIR25TA5 PO; +[UNRECOGNIZED DRUG - OTHER]
--- NOTE | 2021-01-03 15:57 | RAD ---
MR#: [id number] Date of Study: 01/03/2021 Ordering Physician: RINKU ORTIZ Referring Physician: ERNESTO RICHARDS Tech: RT Abigail Floyd) (N) APPROVED REPORT Test Type: Pharmacological Stress Nurse/Tech: RT Mariel (Chana) (N) Test Indications: chronic systolic heart failure Cardiac History: pacemaker/defibrillator Medications: see EHR Medical History: see EHR Resting EC% V-paced Resting Heart Rate: 70 bpm Resting Blood Pressure: 153/61mmHg Pretest Chest Pain: None Nurse/Tech Notes Consent: The procedure was explained to the patient in lay terms. Informed consent was witnessed. Omid eout was entered into [employer]. History and Stress Test performed by RT Mariel (Chana) (N) Pharm. Details Pharmacologic stress testing was performed using 0.4mg per 5ml of regadenoson given intravenously ove r 7-10 seconds. POST EXERCISE Reason for Termination: Infusion complete Max HR: 87 bpm Max Blood Pressure: 152/61mmHg INTERPRETATION Stress EKG Conclusion: Non-diagnostic EKG due to 100% BiV pacing Imaging Protocol IMAGE PROTOCOL: Rest Tc-99m/stress Tc-99m 1 day Rest: Stress: Viability: Radiopharm.Tc99m UqswshnujNu73e Sestamibi Dose10.1mCi 31.3mCi Duration 15min. 10min. Img Date 01/03/2021 01/03/2021 Inj-Img Hqmj20pse. 60min. Rest Admin Site:IV - Left HandAdministrator: RT Mariel (R)(N) Stress Admin Site: IV - Left HandAdministrator: RT Abigail Floyd)(N) STRESS DATA End Diast. Vol.173.0mlAv. Heart Rate82.0bpm End Syst. Vol.119.0mlCO Index BSA0.0L/min Myocardial Rdgr707.0gEject. Kmrsjohu43.0% Stress Rates Pk. Fill Rate1.86EDV/secLVtime Pk. Fill 252.57msec Pk. Empty Rate2.46ESV/secLVtime Pk. Rzkiu914.10msec /3 Pk. Fill0.18EDV/sec Stress Scores Regional WT1.00Summed WT31.00 Regional WM1.00Summed WM23.00 LV Perfusion Normal perfussion at stress/rest. Wall Motion Severe LV dysfunction, EF 35% LV Perf. Quant 17 Seg. SSS4.00 17 Seg. SRS6.00 17 Seg. SDS0.00 Stress Defect Extent (% LAD)0.00Rest Defect Extent (% LAD)0.00Rev. Defect Extent (% LAD)0.00 Stress Defect Extent (% LCX) 26.30Rest Defect Extent (% LCX)37.50Rev. Defect Extent (% LCX)0.00 Stress Defect Extent (% RCA)0.00Rest Defect Extent (% RCA)0.00Rev. Defect Extent (% RCA)0.00 Stress Defect Extent (% MARIANNE)4.60Rest Defect Extent (% MARIANNE)7.60Rev. Defect Extent (% MARIANNE)0.00 Other Information Quality:Average Risk Assessment: Moderate Risk Conclusion 1. Non-diagnostic EKG due to 100% pacing 2. Normal perfusion at stress/rest. 3. Severe LV dysfunction. EF 30% 4. Moderate risk for future CV events. Signed by : Kendall Wong, Electronically Approved : 01/03/2021 15:56:50
--- NOTE | 2021-01-03 17:14 | CARD ---
MR#: [id number] Date of Study: 01/03/2021 Ordering Physician: RINKU ORTIZ, Referring Physician: RINKU ORTIZ, Tech: Yolanda Sweeney [facility] APPROVED REPORT EXAM: Two-dimensional and M-mode echocardiogram with Doppler and color Doppler. Other Information Quality : AverageHR: 82bpm Rhythm : Pacemaker INDICATION COPD Congestive Heart Failure Surgery/Intervention ICD/Pacemaker: RISK FACTORS Hypertension Hyperlipidemia Diabetes 2D DIMENSIONS RVDd3.0 (2.9-3.5cm)Left Atrium(2D)2.7 (1.6-4.0cm) IVSd1.0 (0.7-1.1cm)Aortic Root(2D)3.3 (2.0-3.7cm) LVDd4.7 (3.9-5.9cm)LVOT Diameter2.2 (1.8-2.4cm) PWd0.9 (0.7-1.1cm)LVDs3.2 (2.5-4.0cm) FS (%) 32.5 %SV63.5 ml LVEF(%)40.8 (>50%) Aortic Valve AoV Peak Jose.218.4cm/sAoV VTI40.2cm AO Peak GR.19.1mmHgLVOT Peak Jose.108.4cm/s LVOT VTI 22.22cmAO Mean GR.11mmHg [place] (VMAX)1.82rc2EUR (VTI)2.02cm2 Pulmonary Valve PV Peak Glqewwtp47.0cm/sPV Peak Grad.2mmHg Tricuspid Valve TR P. Zvzyeqlr556fz/sRAP [id number] TR Peak Gr.21hpBoACSK02koCh Pulmonary Vein S1 Ghijmsou43.5cm/sD2 Ozghgxbn56.5cm/s LEFT VENTRICLE The left ventricle is normal size. There is normal left ventricular wall thickness. The systolic func tion is severely impaired. EF 35% There is global hypokinesis with moderate to severe inferior wall h ypokinesis. Septal motion suggestive of conduction defect. Tissue Doppler imaging reveals moderate le ft ventricular diastolic dysfunction. RIGHT VENTRICLE The right ventricle is normal size. There is normal right ventricular wall thickness. The right ventr icular systolic function is normal. There is a pacemaker lead in the right ventricle. ATRIA The left atrium size is normal. The right atrium size is normal. The interatrial septum is intact wit h no evidence for an atrial septal defect or patent foramen ovale as noted on 2-D or Doppler imaging. AORTIC VALVE The aortic valve is thickened but opens well. Doppler and Color Flow revealed trace aortic regurgitat ion. Calculated aortic valve area is 1.9 cm2 with maximum pressure gradient of 19 mmHg and mean press ure gradient of 10 mmHg. MITRAL VALVE The mitral valve is normal in structure and function. There is no evidence of mitral valve prolapse. There is no mitral valve stenosis. Doppler and Color-flow revealed trace mitral regurgitation. TRICUSPID VALVE The tricuspid valve is normal in structure and function. Doppler and Color Flow revealed trace tricus pid regurgitation with an estiamted PAPof 24 mmHg. There is no tricuspid valve stenosis. PULMONIC VALVE The pulmonic valve is not well visualized. Doppler and Color Flow revealed trace pulmonic valvular re gurgitation. There is no pulmonic valvular stenosis. GREAT VESSELS The aortic root is normal in size. The ascending aorta is normal in size. The IVC was not well visual ized. PERICARDIAL EFFUSION There is no evidence of significant pericardial effusion. Critical Notification Critical Value: No <Conclusion> The systolic function is severely impaired. EF 35% There is global hypokinesis with moderate to severe inferior wall hypokinesis. Septal motion suggesti ve of conduction defect. There is a pacemaker lead in the right ventricle. Calculated aortic valve area is 1.9 cm2 with maximum pressure gradient of 19 mmHg and mean pressure g radient of 10 mmHg. Signed by : Kendall Wong, Electronically Approved : 01/03/2021 17:14:13
== END ==
LOC: NM 08:28
PROVIDERS: ATTEND Internal Medicine Cardiovascular Disease
DX: I50.22 Chronic systolic (congestive) heart failure (principal); Z95.0 Presence of cardiac pacemaker
CPT/HCPCS: 78452; 93017; 93306; A9500; J2785

== ENCOUNTER → 2021-08-14 | Outpatient (CLI) | payer MEDICARE, BC ==
[2016-04-20 08:21] VITALS: BP 129/75
[~2021-08-14] MED LIST changes: -REGADENOSON 0.4 MG/5 ML DISP.SYRIN. IV ONE
--- NOTE | 2021-08-14 08:46 | RAD ---
EXAM: Left shoulder, 3 views. HISTORY: Pain. COMPARISON: None. FINDINGS: 3 views of the left shoulder obtained. There is no fracture, dislocation or subluxation. Th ere is degenerative subchondral sclerosis, spurring and bony remodeling involving the glenoid and art icular aspect of the humeral head. The acromioclavicular joint is intact. There is partial visualizat ion of a cardiac pacemaker. IMPRESSION: 1. Moderate glenohumeral osteoarthritis. 2. No acute osseous finding. Electronically signed by: Sonia Ruano MD (08/14/2021 8:43 AM) [id number]
== END ==
LOC: RAD 08:21
PROVIDERS: ATTEND Physician Assistant Medical
DX: M19.012 Primary osteoarthritis, left shoulder (principal)
CPT/HCPCS: 73030

== ENCOUNTER → 2021-10-23 | Outpatient (CLI) | payer MEDICARE, BC ==
[2016-04-20 08:21] VITALS: BP 129/75
--- NOTE | 2021-10-23 09:54 | RAD ---
PA and lateral views of the chest. Comparison: 11/20/2019. Indication: Upper respiratory tract infection Findings: The aorta is calcified and tortuous. Biventricular pacemaker is reidentified. Leads appear stable. Th e heart size is enlarged but stable. No pneumothorax or effusion. No air space or interstitial disea se. The bony structures are intact. Impression: 1. No acute cardiopulmonary process. Electronically signed by: Patrice Perla MD (10/23/2021 9:51 AM) [id number]
== END ==
LOC: RAD 09:38
PROVIDERS: ATTEND Nurse Practitioner Family
DX: I51.7 Cardiomegaly (principal); I70.0 Atherosclerosis of aorta; J06.9 Acute upper respiratory infection, unspecified; Q25.46 Tortuous aortic arch; Z95.0 Presence of cardiac pacemaker
CPT/HCPCS: 71046

== ENCOUNTER → 2021-11-27 | Outpatient (CLI) | payer MEDICARE, BC ==
[2016-04-20 08:21] VITALS: BP 129/75
--- NOTE | 2021-11-27 15:55 | RAD ---
XR BILAT FEET 3 VIEWS 11/27/2021 Reason: BILATERAL FOOT PAIN Comparison: None Technique: 3 views of the left foot, 2 views of the right foot Findings: No acute fracture or dislocation. There is joint space narrowing and subchondral sclerosis at the int erphalangeal joints. When compared to the right, there is inferior subluxation left fifth metatarsal. Bone mineralization and soft tissues are normal. No erosive change. Impression: No acute osseous abnormality. Electronically signed by: Tony Saenz (11/27/2021 3:53 PM) [id number]
== END ==
LOC: RAD 08:47
PROVIDERS: ATTEND Podiatrist
DX: S93.332A Other subluxation of left foot, initial encounter (principal); X58.XXXA Exposure to other specified factors, initial encounter; Y93.89 Activity, other specified; Y92.89 Other specified places as the place of occurrence of the external cause; Y99.8 Other external cause status
CPT/HCPCS: 73630-50

== ENCOUNTER → 2022-03-06 | Outpatient (CLI) | payer MEDICARE, BC ==
[2016-04-20 08:21] VITALS: BP 129/75
[~2022-03-06] MED LIST changes: +ACLI400A2 IH; -ACLI400A3 IH
--- NOTE | 2022-03-06 15:48 | CARD ---
MR#: [id number] Date of Study: 03/06/2022 Ordering Physician: RINKU MELENDEZ, Referring Physician: Joana RICHARDS: Nitesh Lanier [facility] APPROVED REPORT EXAM: Two-dimensional and M-mode echocardiogram with Doppler and color Doppler. Other Information Quality : AverageHR: 73bpm Rhythm : NSR INDICATION Cardiomyopathy Surgery/Intervention ICD/Pacemaker: RISK FACTORS Hypertension Obesity Hyperlipidemia 2D DIMENSIONS Left Atrium(2D)4.9 (1.6-4.0cm)IVSd1.0 (0.7-1.1cm) Aortic Root(2D)3.5 (2.0-3.7cm)LVDd5.6 (3.9-5.9cm) LVOT Diameter2.2 (1.8-2.4cm)PWd1.0 (0.7-1.1cm) LA Wkhzqo60 (18-58mL)LVDs5.3 (2.5-4.0cm) FS (%) 4.8 %SV16.5 ml LVEF(%)10.8 (>50%) Aortic Valve AoV Peak Ojse.208.1cm/sAoV VTI45.0cm AO Peak GR.17.3mmHgLVOT Peak Jose.0.9cm/s LVOT VTI 14.12cmAO Mean GR.10mmHg [place] (VMAX)1.32zb9GMT (VTI)1.14cm2 Mitral Valve MV E Dnvimpga58.6cm/sMV DECEL [id number] MV A Brcmnyap81.1cm/sE/A Ratio0.4 Pulmonary Valve PV Peak Jklcuxjz43.3cm/sPV Peak Grad.2mmHg Tricuspid Valve TR P. Yqaroayq700rc/sTR Peak Gr.19mmHg Pulmonary Vein S1 Hoeadoca97.3cm/sD2 Qtpzyxpw52.9cm/s LEFT VENTRICLE The left ventricle is normal size. There is normal left ventricular wall thickness. The left ventricu lar systolic function is moderately impaired. The Ejection Fraction is 30-35%. There is global hypoki nesis of the left ventricle. Tissue Doppler imaging reveals moderate left ventricular diastolic dysfu nction. No left ventricle thrombus noted on this study. There is no ventricular septal defect visuali zed. There is no left ventricular aneurysm. There is no mass noted in the left ventricle. RIGHT VENTRICLE The right ventricle is normal size. There is normal right ventricular wall thickness. The right ventr icular systolic function is normal. AICD wire noted in the right ventricle. ATRIA The left atrium is moderately dilated. The right atrium size is normal. The interatrial septum is int act with no evidence for an atrial septal defect or patent foramen ovale as noted on 2-D or Doppler i maging. AORTIC VALVE The aortic valve is thickened but opens well. Doppler and Color Flow revealed trace aortic regurgitat ion. There is no significant aortic valvular stenosis. Calculated aortic valve area is 1.6 cm2 with m aximum pressure gradient of 17 mmHg and mean pressure gradient of 10 mmHg. There is no aortic valvula r vegetation. MITRAL VALVE The mitral valve is normal in structure and function. There is no evidence of mitral valve prolapse. There is no mitral valve stenosis. Doppler and Color-flow revealed trace mitral regurgitation. TRICUSPID VALVE The tricuspid valve is normal in structure and function. Doppler and Color Flow revealed trace tricus pid regurgitation. The PA pressure was estimated at 20 mmHg. There is no tricuspid valve prolapse or vegetation. There is no tricuspid valve stenosis. PULMONIC VALVE The pulmonary valve is normal in structure and function. Doppler and Color Flow revealed no pulmonic valvular regurgitation. There is no pulmonic valvular stenosis. GREAT VESSELS The aortic root is normal in size. The ascending aorta is normal in size. The pulmonary artery is nor mal. The IVC is normal in size and collapses >50% with inspiration. PERICARDIAL EFFUSION There is no pleural effusion. There is no evidence of significant pericardial effusion. Critical Notification Critical Value: No <Conclusion> The left ventricular systolic function is moderately impaired. The Ejection Fraction is 30-35%. ICD wire noted RA/RV. Trace mitral regurgitation. Trace tricuspid regurgitation. The PA pressure was estimated at 20 mmHg. There is no evidence of significant pericardial effusion. Signed by : Rinku Melendez, Electronically Approved : 03/06/2022 15:47:34
== END ==
LOC: ECHO 08:47
PROVIDERS: ATTEND Internal Medicine Cardiovascular Disease
DX: I50.22 Chronic systolic (congestive) heart failure (principal)
CPT/HCPCS: 93306